=== PATIENT | female | born 1940 | race Native Hawaiian/Other Pacific Islander ===

== ENCOUNTER 2018-10-11 00:50 | Emergency (ER) | payer OTHER ==
[~2018-10-11] VITALS: Ht 157.5 cm; Wt 48.5 kg
[2018-10-11 00:50] VITALS: BP 102/69; TEMP 98
[2018-10-11 01:20] LABS: PLATELET COUNT 201 K/uL (152-353)
[2018-10-11 01:23] LABS: POTASSIUM 3.5 mmol/L (3.6-5.2)
[2018-10-11] MEDS ORDERED: HOUSE SUPPLEMENT PO (07:25)
[2018-10-11] MEDS ORDERED: OMEPRAZOLE DR20 MG PO (07:27)
[2018-10-11] MEDS ORDERED: VITAMIN B-121000 MC2 PO (07:28)
[2018-10-11] MEDS ORDERED: LIPITOR40 MG PO (07:30)
[2018-10-11] MEDS ORDERED: NAMENDA1 TAB PO (07:32)
[2018-10-11] MEDS ORDERED: MIRTAZAPINE7.5 MG PO (07:35)
[2018-10-11] MEDS ORDERED: DIVA250T PO (07:36)
[2018-10-11] MEDS ORDERED: DIVALPROEX500 MG PO (07:40)
[2018-10-11] MEDS ORDERED: RISP0.5T2 PO (07:42)
[2018-10-11] MEDS ORDERED: MAGNSUS68 PO (07:44)
[2018-10-11] MEDS ORDERED: HYDR5TAB9 PO (07:50)
[2018-10-11] MEDS ORDERED: TYLENOL325 MG PO (07:52)
[2018-10-11] MEDS ORDERED: ONDA4TAB3 PO (07:56)
== END 2018-10-11 02:19 | disposition still patient (30) ==
LOC: ED 00:50
PROVIDERS: Emergency Medicine
DX: F03.90 Unspecified dementia, unspecified severity, without behavioral disturbance, psychotic disturbance, mood disturbance, and anxiety (principal); R46.89 Other symptoms and signs involving appearance and behavior; Z04.6 Encounter for general psychiatric examination, requested by authority
CPT/HCPCS: 80053; 85027; 93005; 99285